=== PATIENT | female | born 1985 | race Caucasian/White ===

== ENCOUNTER 2022-10-24 22:44 | Observation (INO) | payer MEDICAID ==
[~2022-10-24] VITALS: Ht 152.4 cm; Wt 64.4 kg
[2022-10-24] MEDS ORDERED: PNV1TABL76 PO (23:29)
[2022-10-24] MEDS ORDERED: ACETAMINOPHEN 500MG TABLET PO PRN (23:30)
[2022-10-25] MEDS ORDERED: BUTORPHANOL TARTRATE 2 MG/ML VIAL IV PRN (01:00)
[2022-10-25] MEDS ORDERED: BUTORPHANOL TARTRATE 2 MG/ML VIAL IM NR (01:00)
[2022-10-25] MEDS ORDERED: LACTATED RINGERS 1,000 ML IV SCH (01:00)
[2022-10-25 01:20] VITALS: BP 98/51
== END 2022-10-25 07:05 | disposition home or self-care (01) ==
LOC: 8 EST LDRP 22:44
PROVIDERS: ADMIT Obstetrics & Gynecology; ATTEND Obstetrics & Gynecology
DX: O99.891 Other specified diseases and conditions complicating pregnancy (principal); M54.9 Dorsalgia, unspecified; Z3A.21 21 weeks gestation of pregnancy; Z98.891 History of uterine scar from previous surgery; X50.1XXA Overexertion from prolonged static or awkward postures, initial encounter; Y93.89 Activity, other specified; Y92.89 Other specified places as the place of occurrence of the external cause; Y99.9 Unspecified external cause status
CPT/HCPCS: 96361; 96374; G0378; J0595; 96360; 99281

== ENCOUNTER 2023-03-09 07:18 | Inpatient (IN) | payer MEDICAID, OTHER ==
[~2023-03-09] VITALS: Ht 154.9 cm; Wt 72.6 kg
[~2023-03-09 07:18] MED LIST: PNV1TABL76 PO
[2023-03-09] MEDS ORDERED: NALOXONE HCL 0.4 MG/ML 1ML VIAL IM PRN (07:45)
[2023-03-09] MEDS ORDERED: CARBOPROST TROMETHAMINE 250 MCG/ML AMPUL IM PRN (07:45)
[2023-03-09] MEDS ORDERED: METHYLERGONOVINE MALEATE 0.2 MG/ML IM PRN (07:45)
[2023-03-09] MEDS ORDERED: OXYTOCIN 30 UNITS/500ML NS PMX 500 ML IV SCH ×2 (07:45→18:15)
[2023-03-09] MEDS ORDERED: SODIUM CHLORIDE 0.9% 10ML VIAL ONE (09:54)
[2023-03-09] MEDS ORDERED: DIPHENHYDRAMINE 50MG/ML VIAL ONE (09:54)
[2023-03-09] MEDS ORDERED: OXYTOCIN 10 UNITS/ML 1ML ONE ×2 (09:54→14:14)
[2023-03-09] MEDS ORDERED: ONDANSETRON HCL 4MG/2ML INJ ONE ×2 (09:54→13:13)
[2023-03-09] MEDS ORDERED: CEFAZOLIN SODIUM 1000MG/VIAL ONE (09:54)
[2023-03-09] MEDS ORDERED: EPHEDRINE SULFATE 50MG/ML VIAL ONE (09:54)
[2023-03-09] MEDS ORDERED: MORPHINE SULFATE/PF 1MG/ML 10ML AMP ONE (09:54)
[2023-03-09] MEDS ORDERED: PHENYLEPHRINE HCL 10 MG/ML 1ML (IV VIAL) IV ONE (09:55)
[2023-03-09] MEDS ORDERED: FENTANYL CITRATE/PF 50MCG/ML 2ML VIAL ONE (09:55)
[2023-03-09 10:05] LABS: CLARITY URINE CLEAR (CLEAR); COLOR URINE YELLOW (YELLOW); KETONES URINE NEGATIVE (NEGATIVE); LEUKOCYTE ESTERASE URINE NEGATIVE (NEGATIVE); NITRITE URINE NEGATIVE (NEGATIVE); OCCULT BLOOD URINE 2+ (NEGATIVE); PH URINE 6.5 (4.5-8.0); PROTEIN URINE NEGATIVE (NEGATIVE); SPECIFIC GRAVITY URINE 1.012 (1.005-1.030); UROBILINOGEN URINE 0.2 E.U./dL (0.2-1.0)
[2023-03-09 10:11] LABS: INR 0.9; PARTIAL THROMBOPLASTIN TIME 30.2 sec (23.4-31.0); PROTHROMBIN TIME 9.8 sec (9.6-11.0)
[2023-03-09] MEDS: LACTATED RINGERS 1,000 ML IV SCH ×2 (10:35→21:38)
[2023-03-09 11:05] LABS: BASOPHILS % 0.5 % (0.0-2.0); HEMATOCRIT. 36.7 % (36.0-48.0); HEMOGLOBIN. 13.1 g/dL (12.0-16.0); LYMPHOCYTES % 20.3 % (20.0-50.0); MEAN CORPUSCULAR HEMOGLOBIN 33.3 pg (28.0-32.0); MEAN CORPUSCULAR VOLUME 93.7 fL (81.0-99.0); MEAN PLATELET VOLUME 9.3 fl (7.4-10.4); MONOCYTES % 7.8 % (2.0-8.0); NEUTROPHILS % 70.4 % (40.0-76.0); PLATELET 197 x1000/uL (130-400); RED BLOOD CELL COUNT 3.92 mill/uL (4.2-5.4); RED CELL DISTRIBUTION WIDTH 13.6 % (11.6-14.6)
[2023-03-09 12:17] LABS: *AMPHETAMINES SCREEN URINE NEGATIVE (NEGATIVE); *BARBITURATES SCREEN URINE NEGATIVE (NEGATIVE); *BENZODIAZEPINES SCREEN URINE NEGATIVE (NEGATIVE); *COCAINE SCREEN URINE NEGATIVE (NEGATIVE); CANNABINOID URINE SCREEN NEGATIVE (NEGATIVE); METHADONE URINE SCREEN NEGATIVE (NEGATIVE); OPIATES URINE SCREEN NEGATIVE (NEGATIVE); PHENCYCLIDINE URINE SCREEN NEGATIVE (NEGATIVE)
[2023-03-09 13:37] LABS: HEPATITIS B SURFACE ANTIGEN NEGATIVE
[2023-03-09] MEDS ORDERED: KETOROLAC 60MG/2ML VIAL IM ONE (13:54)
[2023-03-09] MEDS ORDERED: NALOXONE HCL 0.4 MG/ML 1ML VIAL IV PRN (14:00)
[2023-03-09] MEDS ORDERED: DIPHENHYDRAMINE 50MG/ML VIAL IV PRN (14:00)
[2023-03-09] MEDS ORDERED: DIPHENHYDRAMINE 25MG CAPSULE PO PRN (18:15)
[2023-03-09] MEDS ORDERED: BISACODYL 10MG SUPP PR PRN (18:15)
[2023-03-09] MEDS ORDERED: RHO(D) IMMUNE GLOBULIN 300 MCG/SYR IM PRN (18:15)
[2023-03-09] MEDS ORDERED: LANOLIN OINT 7GM TUBE TOP PRN (18:15)
[2023-03-09] MEDS ORDERED: ONDANSETRON HCL 4MG/2ML INJ IV PRN (18:15)
[2023-03-09] MEDS ORDERED: HYDROCODONE/ACETAMINOPHEN 5/325MG TABLET PO PRN ×2 (18:15)
[2023-03-09] MEDS ORDERED: IBUPROFEN 400MG TABLET PO PRN (18:15)
[2023-03-09 18:30] VITALS: BP 91/42; PULSE 67; RESP 18; TEMP 98.5; O2SAT 97
[2023-03-09 19:30] VITALS: BP 92/55; PULSE 61; RESP 18; TEMP 98.4; O2SAT 97
[2023-03-09] MEDS: DOCUSATE SODIUM 100MG CAPSULE PO SCH (21:19)
[2023-03-09] MEDS: KETOROLAC 30MG/ML VIAL IV SCH (21:19)
[2023-03-10] VITALS: BP 98/53; PULSE 65; RESP 18; TEMP 98.3
[2023-03-10] MEDS: KETOROLAC 30MG/ML VIAL IV SCH (03:25)
[2023-03-10 04:00] VITALS: BP 91/44; PULSE 74; RESP 18; TEMP 98.7
[2023-03-10] MEDS: LACTATED RINGERS 1,000 ML IV SCH (05:22)
[2023-03-10 08:00] VITALS: BP 90/54; PULSE 71; RESP 18; TEMP 98.4; O2SAT 97
[2023-03-10 16:00] VITALS: BP 97/60; PULSE 72; RESP 18; TEMP 98.4; O2SAT 97
[2023-03-10] MEDS: PRENATAL VIT/FE FUMARATE/FA TABLET PO SCH (16:20)
[2023-03-10] MEDS: IBUPROFEN 800MG TABLET PO PRN ×2 (16:21→23:52)
[2023-03-10 20:26] VITALS: BP 98/59; PULSE 91; RESP 18; TEMP 98.4
[2023-03-10 20:33] VITALS: O2SAT 99
[2023-03-10] MEDS: DOCUSATE SODIUM 100MG CAPSULE PO SCH (21:45)
[2023-03-11 02:16] VITALS: BP 92/56; PULSE 64; RESP 18; TEMP 98.2
[2023-03-11 05:43] VITALS: BP 105/66; PULSE 67; RESP 18; TEMP 98.2
[2023-03-11 08:15] VITALS: O2SAT 99
[2023-03-11 08:30] VITALS: BP 113/63; PULSE 81; RESP 18; TEMP 97.4
[2023-03-11] MEDS: IBUPROFEN 800MG TABLET PO PRN ×3 (08:33→21:38)
[2023-03-11] MEDS: PRENATAL VIT/FE FUMARATE/FA TABLET PO SCH (08:34)
[2023-03-11 15:30] VITALS: BP 106/66; PULSE 88; RESP 18; TEMP 98.8
[2023-03-11 20:00] VITALS: BP 100/60; PULSE 76; RESP 18; TEMP 99; O2SAT 98
[2023-03-11] MEDS: DOCUSATE SODIUM 100MG CAPSULE PO SCH (21:38)
[2023-03-12] MEDS ORDERED: IBUP-2030 PO (01:41)
[2023-03-12] MEDS ORDERED: FERR325T6 MT (01:41)
[2023-03-12 02:48] LABS: BASOPHILS % 0.5 % (0.0-2.0); EOSINOPHILS % 4.3 % (0.0-5.0); HEMATOCRIT. 30.3 % (36.0-48.0); HEMOGLOBIN. 10.7 g/dL (12.0-16.0); LYMPHOCYTES % 23.9 % (20.0-50.0); MEAN CORPUSCULAR HEMOGLOBIN 33.3 pg (28.0-32.0); MEAN CORPUSCULAR VOLUME 94.2 fL (81.0-99.0); MEAN PLATELET VOLUME 8.7 fl (7.4-10.4); MONOCYTES % 6.7 % (2.0-8.0); NEUTROPHILS % 64.6 % (40.0-76.0); PLATELET 205 x1000/uL (130-400); RED BLOOD CELL COUNT 3.21 mill/uL (4.2-5.4); RED CELL DISTRIBUTION WIDTH 13.9 % (11.6-14.6)
[2023-03-12 03:45] VITALS: BP 104/66; PULSE 72; RESP 18; TEMP 98.9
[2023-03-12] MEDS: IBUPROFEN 800MG TABLET PO PRN (03:54)
[2023-03-12 07:45] VITALS: BP 103/64; PULSE 64; RESP 18; TEMP 98; O2SAT 98
[2023-03-12] MEDS: PRENATAL VIT/FE FUMARATE/FA TABLET PO SCH (08:13)
== END 2023-03-12 12:40 | disposition home or self-care (01) | DRG 539 ==
LOC: 8 EST LDRP 07:18 → OBSVTOIN 07:18 → 8EST 19:01
PROVIDERS: ADMIT Obstetrics & Gynecology; ATTEND Obstetrics & Gynecology
PROC: 10D00Z1 Extraction of Products of Conception, Low, Open Approach (ICD-10-PCS; principal; 2023-03-09)
PROC: 0UB70ZZ Excision of Bilateral Fallopian Tubes, Open Approach (ICD-10-PCS; 2023-03-09)
DX: O48.0 Post-term pregnancy (principal); O34.211 Maternal care for low transverse scar from previous cesarean delivery; Z20.822 Contact with and (suspected) exposure to COVID-19; Z30.2 Encounter for sterilization; Z37.0 Single live birth; Z3A.40 40 weeks gestation of pregnancy; Z86.16 Personal history of COVID-19
CPT/HCPCS: 36415; 80305; 81003; 85025; 86592; 86703; 86762; 86850; 86900; 87340; 87426; 88302; 88307; J0690; J1200; J1885; J2274; J2370; J2405; J3010; J3490; J7120; A4315; J2590

== ENCOUNTER 2023-05-11 00:38 | Emergency (ER) | payer OTHER ==
[~2023-05-11] VITALS: Ht 154.9 cm; Wt 59.0 kg
[~2023-05-11 00:38] MED LIST changes: +FERR325T6 MT; +IBUP-2030 PO
[2023-05-11 00:47] VITALS: O2SAT 98
[2023-05-11 01:26] LABS: BASOPHILS % 0.5 % (0.0-2.0); EOSINOPHILS % 2.5 % (0.0-5.0); HEMATOCRIT. 40.4 % (36.0-48.0); HEMOGLOBIN. 14.4 g/dL (12.0-16.0); MEAN CORPUSCULAR HEMOGLOBIN 31.3 pg (28.0-32.0); MEAN CORPUSCULAR HGB CONC 35.5 g/dL (31.0-37.0); MEAN PLATELET VOLUME 9.2 fl (7.4-10.4); MONOCYTES % 5.5 % (2.0-8.0); NEUTROPHILS % 59.5 % (40.0-76.0); PLATELET 173 x1000/uL (130-400); RED BLOOD CELL COUNT 4.59 mill/uL (4.2-5.4); RED CELL DISTRIBUTION WIDTH 12.5 % (11.6-14.6); WHITE BLOOD COUNT 6.3 x1000/uL (4.5-11.0)
[2023-05-11 01:31] LABS: CLARITY URINE CLEAR (CLEAR); COLOR URINE YELLOW (YELLOW); GLUCOSE URINE NEGATIVE (NEGATIVE); KETONES URINE NEGATIVE (NEGATIVE); LEUKOCYTE ESTERASE URINE NEGATIVE (NEGATIVE); NITRITE URINE NEGATIVE (NEGATIVE); OCCULT BLOOD URINE 1+ (NEGATIVE); PH URINE 6.5 (4.5-8.0); PROTEIN URINE NEGATIVE (NEGATIVE); SPECIFIC GRAVITY URINE 1.015 (1.005-1.030); UROBILINOGEN URINE 0.2 E.U./dL (0.2-1.0)
[2023-05-11 01:35] LABS: CHLORIDE 104 mEq/L (98-107); INDEX HEMOLYSI 1 (1-3); INDEX ICTERIC 1 (1-4); INDEX LIPEMIC 1 (1-3); POTASSIUM 3.9 mEq/L (3.5-5.1); SODIUM 137 mEq/L (136-145)
[2023-05-11 01:36] LABS: BACTERIA URINE NONE SEEN; SQUAMOUS EPITHELIAL CELL URINE NONE SEEN /lpf (RARE/1+); WBC URINE NONE SEEN /hpf (0-2); YEAST URINE NONE SEEN
[2023-05-11 01:45] LABS: ALANINE AMINOTRANSFERASE 65 IU/L (13-61); ASPARTATE AMINOTRANSFERASE 47 IU/L (15-37); BILIRUBIN TOTAL 0.5 mg/dL (0.1-1.0); CALCIUM 9.1 mg/dL (8.5-10.1); CARBON DIOXIDE 29 mEq/L (21-32); CREATININE 0.8 mg/dL (0.6-1.3); GLUCOSE 118 mg/dL (70-105); PROTEIN TOTAL 7.8 g/dL (6.0-8.3); UREA NITROGEN BLOOD 18 mg/dL (7-21)
[2023-05-11] MEDS ORDERED: KETOROLAC 60MG/2ML VIAL IM NR (02:15)
[2023-05-11] MEDS ORDERED: ONDANSETRON 4MG ODT PO NR (02:15)
[2023-05-11 03:50] VITALS: BP 129/76
[2023-05-11] MEDS ORDERED: ONDA4TAB50 MT (04:00)
[2023-05-11] MEDS ORDERED: NAPR-1074 MT (04:00)
[2023-05-11 04:27] VITALS: PULSE 98; RESP 20; TEMP 98.3
== END 2023-05-11 04:28 | disposition home or self-care (01) ==
LOC: ER 00:38
DX: K80.20 Calculus of gallbladder without cholecystitis without obstruction (principal)
CPT/HCPCS: 80053; 81003; 81025; 83690; 85025; 36415; 76705; 93005; 96372; 99285; Q0162; J1885; Z7610